=== PATIENT | female | born 2000 | race Caucasian/White ===

== ENCOUNTER 2024-07-16 08:54 | Emergency (ER) | payer OTHER ==
[2024-07-16 09:15] VITALS: BP 140/86; PULSE 106; RESP 16; TEMP 98.8; BMI 34.0
[2024-07-16] MEDS ORDERED: LIDOCAINE 4% PATCH TP ONE (09:39)
[2024-07-16] MEDS ORDERED: ACETAMINOPHEN 500 MG TABLET (FP) ONE (09:39)
[2024-07-16] MEDS: ACETAMINOPHEN 500 MG TABLET (FP) PO ONE (09:50)
[2024-07-16] MEDS: LIDOCAINE 4% PATCH TP ONE (09:50)
[2024-07-16] MEDS ORDERED: LIDOCAINE PATCH REMOVAL MC ONE (22:00)
== END 2024-07-16 12:14 | disposition home or self-care (01) ==
LOC: JER 08:54 → JERFT 08:54
DX: R51.9 Headache, unspecified (principal); M54.2 Cervicalgia; V47.6XXA Car passenger injured in collision with fixed or stationary object in traffic accident, initial encounter; Y92.410 Unspecified street and highway as the place of occurrence of the external cause
CPT/HCPCS: 99283-25